=== PATIENT | male | born 1990 | race Native Hawaiian/Other Pacific Islander ===

== ENCOUNTER 2017-06-12 12:55 | Outpatient (CLI) | payer BC, OTHER | END 2017-06-12 19:36 | disposition home or self-care (01) | LOC: RAD 12:55 | DX: R23.0 Cyanosis (principal) ==

== ENCOUNTER 2017-06-13 09:09 | Outpatient (CLI) | payer BC, OTHER ==
[2017-06-13 09:40] LABS: PLATELET COUNT 230 K/uL (142-355)
[2017-06-13 10:17] LABS: POTASSIUM 3.9 mmol/L (3.6-5.2)
== END 2017-06-13 21:38 | disposition home or self-care (01) ==
LOC: LABW 09:09
PROVIDERS: Internal Medicine
DX: G40.909 Epilepsy, unspecified, not intractable, without status epilepticus (principal)
CPT/HCPCS: 36415; 80053; 82542; 85027

== ENCOUNTER 2020-12-15 09:01 | Outpatient (CLI) | payer BC, OTHER ==
[2020-12-15 09:26] LABS: PLATELET COUNT 232 K/uL (142-355)
[2020-12-15 10:10] LABS: POTASSIUM 4.2 mmol/L (3.6-5.2)
== END 2020-12-15 22:35 | disposition home or self-care (01) ==
LOC: LABW 09:01
PROVIDERS: ATTEND Internal Medicine
DX: R82.90 Unspecified abnormal findings in urine (principal); R56.9 Unspecified convulsions
CPT/HCPCS: 36415; 80053; 81000; 82542; 84439; 84443; 85027; 87088